=== PATIENT | female | born 1955 ===

== ENCOUNTER → 2022-12-06 10:29 | Outpatient (BNVA) | payer MEDICARE, SELFPAY | PROVIDERS: PCP Internal Medicine; Visit Provider Hospitalist | DX: G47.33 Obstructive sleep apnea (adult) (pediatric) (principal); J45.20 Mild intermittent asthma, uncomplicated | CPT/HCPCS: 99202 ==

== ENCOUNTER → 2023-02-01 09:04 | Outpatient (REF) | payer MEDICARE, SELFPAY | LOC: HO.SL 09:04 | PROVIDERS: Visit Provider Hospitalist | DX: Z13.89 Encounter for screening for other disorder (principal) ==

== ENCOUNTER → 2023-02-03 11:47 | Outpatient (REF) | payer MEDICARE, SELFPAY | LOC: HO.SL 11:47 | PROVIDERS: Visit Provider Hospitalist | DX: G47.33 Obstructive sleep apnea (adult) (pediatric) (principal) | CPT/HCPCS: 95806 ==

== ENCOUNTER → 2023-02-03 13:56 | Outpatient (BNV) | payer MEDICARE, SELFPAY | PROVIDERS: Visit Provider Internal Medicine | DX: G47.33 Obstructive sleep apnea (adult) (pediatric) (principal) | CPT/HCPCS: 95806 ==

== ENCOUNTER 2023-04-07 14:22 | Outpatient (AMB) | payer MEDICARE, SELFPAY ==
[2023-04-07 14:29] VITALS: PULSE 71; O2SAT 97; BMI 28.5
--- NOTE | 2023-04-07 14:29 | MHC.OFFVIS ---
Intake Vital Signs 04/07/23 14:29 Height 5 ft 1 in Weight 151 lb 0.266 oz BMI 28.5 Pulse 71 Pulse Source Pulse Oximeter Pulse Oximetry (%) 97 Oxygen Delivery Method Room Air Intake Visit Reasons: Shortness of breath Crm Coordinator Required: No Allergies No Known Allergies Allergy (Unverified 04/07/23 14:30) HPI HPI Comments History of Present Illness Details The patient is a 66 year woman with a known history of asthma and of the addition to obstructive sleep apnea. The patient has been on CPAP for many years. She has been treated with CPAP with very good effect. If she does benefit a lot from CPAP. She does use it every night. She does have a nasal mask which she tolerates very well as well. She started getting a message from the CPAP of a motor dysfunction. She has had this CPAP now for more than 8 years. Therefore she needs to get a replacement machine. She did have a sleep study here at [facility] many years ago. She would like to get another replacement but like to change DME companies because she is not very happy with what she has right now. We will set her up with a local DME company did skin this case. The patient needs to continue her CPAP therapy based on her severity of disease and also her cardiovascular risk factors. The patient also has a history of asthma. She has maintenance inhalers and also singular that she uses. She has not required her rescue inhaler at this time. 04/07/2023 the patient is here for pulmonary follow-up visit. She continues use her current CPAP although it has a warning message about motor dysfunction. However, the patient can not function without using her CPAP so therefore she still using every night. The CPAP therapy still is very beneficial although this machine is not so effective. She does use it for more than 4 hours a night. We had requested a replacement machine for her. However, she needed to have a repeat sleep study. Therefore the patient did undergo a sleep study initially and then had to be repeated due to lack of information. We did review her 2nd sleep study demonstrating an AHI of 11 events an hour and significant hypoxia. Based on her ongoing obstructive sleep apnea and her underlying cardiovascular risk factors the patient needs to continue CPAP therapy. We will order another CPAP machine from a local DME company in be established with the company to get supplies. Otherwise the patient is doing well from a respiratory status. She is no longer using the Flovent. She has a rescue inhaler that she has not really used. She is also using Singulair at nighttime. Will continue with current respiratory therapy and the patient should be getting a new CPAP soon. Will follow-up in a year's time if all is well. if other issues arise the patient is to call the office for further evaluation. [facility] Medical History (Updated 12/06/22 @ 23:22 by Lennox Duval MD) Asthma TREVA (obstructive sleep apnea) Social History (Updated 12/06/22 @ 10:54 by BRANDEN Villegas) Patient Tobacco Use Status: Never used Tobacco Review of Systems Const Denies fatigue and Denies headache(s) Eyes Denies change in vision ENT Denies headache(s) Card Denies chest pain Resp Denies cough GI Reports no additional complaints Musc Reports no additional complaints Skin/Breast Denies rash Neuro Reports no additional complaints and Denies headache(s) Endo Denies fatigue Cabrera/Lymph Denies lymphadenopathy Physical Exam Vital Signs: Last Vital Signs Pulse 71 04/07/23 14:29 Pulse Ox 97 04/07/23 14:29 Oxygen Delivery Method Room Air 04/07/23 14:29 BMI result Body Mass Index 28.5 Const General: comfortable HEENT Head: Yes atraumatic Neck Neck: Yes supple Chest Chest palpation & inspection: normal inspection of the chest Resp Effort & Inspection: normal respiratory effort Auscultation: clear to auscultation bilaterally Cardio Rate: regular rate Rhythm: regular rhythm Heart sounds: S1 normal heart sound present and S2 normal heart sound present GI Palpation (GI): Soft to palpation Skin General skin exam: no rashes or lesions noted Extrem General: Yes no clubbing, cyanosis or edema Assessment & Plan Assessment & Plan (1) TREVA (obstructive sleep apnea): Code(s): G47.33 - Obstructive sleep apnea (adult) (pediatric) (2) Asthma: Code(s): J45.909 - Unspecified asthma, uncomplicated Qualifiers: Asthma complication type: uncomplicated Asthma persistence: intermittent Asthma severity: mild Qualified Code(s): J45.20 - Mild intermittent asthma, uncomplicated Plan APAP machine is malfuctioning, needs a replacement. The patient has been using her CPAP for many years and the therapy has been effective and beneficial. Her malfuctioning APAP is more than 8 years old and has motor damage. Her repeat PSG demonstrates ongoing mild to moderate TREVA. rx sent to [facility]. YOUNG as needed holding Flovent continue singulair F/U 12 months Coding Level of Care Code Est Pt Level 4 (64115) Diagnoses TREVA (obstructive sleep apnea) G47.33 Mild intermittent asthma without complication J45.20 Asthma complication type: uncomplicated Asthma persistence: intermittent Asthma severity: mild Time Spent (min) 16
== END 2023-04-07 14:58 | disposition home or self-care (01) ==
PROVIDERS: PCP Internal Medicine; Visit Provider Hospitalist
DX: G47.33 Obstructive sleep apnea (adult) (pediatric) (principal); J45.20 Mild intermittent asthma, uncomplicated
CPT/HCPCS: 99214

== ENCOUNTER → 2023-04-07 14:22 | Outpatient (BNVA) | payer MEDICARE, SELFPAY | PROVIDERS: Visit Provider Hospitalist | DX: J45.20 Mild intermittent asthma, uncomplicated (principal); G47.33 Obstructive sleep apnea (adult) (pediatric) | CPT/HCPCS: 99212 ==

== ENCOUNTER 2023-08-12 14:54 | Outpatient (AMB) | payer MEDICARE, SELFPAY ==
--- NOTE | 2023-08-12 10:04 | A.OFFVIS_ITS ---
Intake Vital Signs 08/12/23 15:12 Height 5 ft 1 in Weight 150 lb BMI 28.3 BP 118/68 Blood Pressure Location Rt brachial Position Sitting Pulse 67 Pulse Source Pulse Oximeter Pulse Oximetry (%) 97 Oxygen Delivery Method Room Air Intake Visit Reasons: wheezing Allergies No Known Allergies Allergy (Unverified 08/12/23 15:10) Medication List - Last Reconciled 08/12/23 by Kierra Dey, COUNTER STACKER albuterol sulfate 90 mcg/actuation (ProAir HFA) 2 puffs inhalation Q6H PRN CPAP (CPAP Machine/Device) As directed estradiol (Vagifem) 10 mcg vaginal 2XW lisinopril 20 mg PO DAILY methenamine hippurate 1 g PO BID multivitamin 1 tab PO DAILY omega-3 fatty acids 1,250 mg PO DAILY pantoprazole 40 mg PO DAILY rosuvastatin 40 mg PO DAILY sertraline 100 mg PO DAILY HPI wheezing HPI Details Padmini is a pleasant 67 year old female, never smoker, with underlying asthma and TREVA on CPAP therapy. At baseline she has been well controlled on albuterol PRN, previously on Flovent. Today she presents for an acute visit. She reports being treated for an upper respiratory infection in May, with two courses of prednisone and antibiotics. Since then she reports chest tightness and feeling as though she has difficulty exhaling completely. She has albuterol but is hesitant to use. She denies cough, dyspnea or wheezing. She denies fevers, chills or sick contacts. Her PCP had placed her on Advair which she trialed for two weeks with minimal improvement. [facility] Medical History (Updated 12/06/22 @ 23:22 by Lennox Duval MD) Asthma TREVA (obstructive sleep apnea) Social History (Updated 12/06/22 @ 10:54 by BRANDEN Villegas) Patient Tobacco Use Status: Never used Tobacco Review of Systems Const Denies chills, Denies excessive sweating, Denies fever(s), Denies headache(s) and Denies night sweats Eyes Denies dry eyes, Denies irritation and Denies itchy eyes ENT Reports Normal hearing present, Denies headache(s), Denies nasal congestion, Denies nasal discharge, Denies post nasal drip and Denies sore throat Card Denies chest pain, Denies chest pain at rest, Denies chest pain with activity, Denies claudication, Denies leg edema, Denies dyspnea, Denies dyspnea on exertion, Denies orthopnea and Denies paroxysmal nocturnal dyspnea Resp Denies chest congestion, Denies cough, Denies excessive phlegm production, Denies pain on inspiration, Denies pain with cough, Denies dyspnea, Denies dyspnea on exertion, Denies stridor and Denies wheezing Musc Denies myalgias Neuro Reports Normal hearing present and Denies headache(s) Endo Denies excessive sweating Cabrera/Lymph Denies lymphadenopathy Aller/Immun Denies itchy eyes, Denies seasonal rhinorrhea and Denies wheezing Physical Exam Vital Signs: Last Vital Signs Pulse 67 08/12/23 15:12 BP 118/68 08/12/23 15:12 Pulse Ox 97 08/12/23 15:12 Oxygen Delivery Method Room Air 08/12/23 15:12 BMI result Body Mass Index 28.3 Const General: cooperative, healthy appearing, comfortable, no acute distress, well developed and alert Orientation/consciousness: patient oriented x3 Limitations: no limitations HEENT Head: Yes normal to inspection, Yes normocephalic and Yes atraumatic Ears: hearing grossly normal bilaterally and external ears normal Eyes General: appearance normal, both eyes and all related structures Eyelids: Yes eyelids normal Sclerae: sclerae normal EOM: EOMs intact bilaterally Neck Neck: Yes normal visual inspection and Yes no lymphadenopathy Lymphatic: no lymphadenopathy noted Chest Chest palpation & inspection: normal inspection of the chest Resp Effort & Inspection: normal respiratory effort, able to speak in complete sentences, no audible wheezes, no cough, no stridor, not tachypneic, no tripod positioning and no use of accessory muscles Auscultation: clear to auscultation bilaterally Cardio Jugular venous distension: no JVD Rate: regular rate Rhythm: regular rhythm Skin Other: warm, dry General skin exam: no rashes or lesions noted Neuro General: patient oriented x3 Cranial nerves: Yes Normal hearing present Cognition (Neuro): normal cognition Gait exam (Neuro): Normal gait present Extrem General: Yes normal to inspection, Yes capillary refill normal, Yes no clubbing, cyanosis or edema and Yes no pedal edema Psych Appearance: grossly normal and well kempt Speech and movement: Normal speech and movement present and Clear speech present Affect: normal affect Attitude: cooperative Thought process: Normal thought process present Thought content: Normal thought content present Insight: Good insight present (Psych) Judgement: Good judgement present (Psych) Assessment & Plan Assessment & Plan (1) Asthma: Code(s): J45.909 - Unspecified asthma, uncomplicated Qualifiers: Asthma severity: mild Asthma persistence: intermittent Asthma complication type: uncomplicated Qualified Code(s): J45.20 - Mild intermittent asthma, uncomplicated Plan Respiratory exam unremarkable. Advised patient to restart Advair and use albuterol when experiencing chest tightness. Will also send for PFT. All questions were answered and patient is in agreement of plan. Will follow up with Dr. Duval to review PFT results or sooner if needed. Orders: Orders PFT pulmonary function test Today J45.909 - Unspecified asthma, uncomplicated Coding Level of Care Code Est Pt Level 4 (30785) Diagnoses Mild intermittent asthma without complication J45.20 Asthma severity: mild Asthma persistence: intermittent Asthma complication type: uncomplicated
[2023-08-12 15:12] VITALS: BP 118/68; PULSE 67; O2SAT 97; BMI 28.3
== END 2023-08-12 15:40 | disposition home or self-care (01) ==
PROVIDERS: PCP Internal Medicine; Visit Provider Nurse Practitioner Family
DX: J45.20 Mild intermittent asthma, uncomplicated (principal)
CPT/HCPCS: 99214

== ENCOUNTER → 2023-08-12 14:54 | Outpatient (BNVA) | payer MEDICARE, SELFPAY | PROVIDERS: PCP Internal Medicine; Visit Provider Nurse Practitioner Family | DX: J45.20 Mild intermittent asthma, uncomplicated (principal) | CPT/HCPCS: 99212 ==

== ENCOUNTER 2023-09-09 09:00 | Outpatient (REF) | payer MEDICARE, SELFPAY ==
--- NOTE | 2023-09-09 11:32 | PFT_ITS ---
Indication: Asthma Spirometry [FEV1 to FVC 69% pre bronchodilators and 72% post bronchodilators. FEV1 1.97 L; FVC 2.73 L. no significant response to bronchodilators noted. Maximum voluntary ventilation 112% predicted] Lung Volumes [Total lung capacity 102% predicted] Diffusion Capacity [DLCO 88% predicted] Comparisons [None] Interpretation [There has a reversible obstructive ventilatory defect consistent with a diagnosis of asthma. No significant response to bronchodilators noted. Normal maximum voluntary ventilation. Lung volumes are within normal limits. Diffusing capacity also within normal limits. Clinical correlation warranted.] MTDD
[2023-09-09 11:33] VITALS: PULSE 76; RESP 14; O2SAT 99
== END 2023-09-09 09:01 | disposition home or self-care (01) ==
LOC: HO.RESP 09:00
PROVIDERS: PCP Internal Medicine; Visit Provider Nurse Practitioner Family
DX: J45.909 Unspecified asthma, uncomplicated (principal)
CPT/HCPCS: 94010; 94640; 94727; 94729

== ENCOUNTER → 2023-09-09 11:32 | Outpatient (BNV) | payer MEDICARE, SELFPAY | PROVIDERS: PCP Internal Medicine; Visit Provider Hospitalist | DX: J45.909 Unspecified asthma, uncomplicated (principal) | CPT/HCPCS: 94060; 94727; 94729 ==

== ENCOUNTER 2023-09-20 13:23 | Outpatient (AMB) | payer MEDICARE, SELFPAY ==
[2023-09-20 13:39] VITALS: PULSE 78; O2SAT 98; BMI 28.3
--- NOTE | 2023-09-20 13:39 | MHC.OFFVIS ---
Intake Vital Signs 09/20/23 13:39 Height 5 ft 1 in Weight 150 lb BMI 28.3 Pulse 78 Pulse Source Pulse Oximeter Pulse Oximetry (%) 98 Oxygen Delivery Method Room Air Intake Visit Reasons: wheezing: f/u after pft Outboard Motor Assembler Required: No Allergies No Known Allergies Allergy (Unverified 09/20/23 13:40) HPI HPI Comments History of Present Illness Details The patient is a 67 year woman with a known history of asthma and of the addition to obstructive sleep apnea. The patient has been on CPAP for many years. She has been treated with CPAP with very good effect. If she does benefit a lot from CPAP. She does use it every night. She does have a nasal mask which she tolerates very well as well. She started getting a message from the CPAP of a motor dysfunction. She has had this CPAP now for more than 8 years. Therefore she needs to get a replacement machine. She did have a sleep study here at [facility] many years ago. She would like to get another replacement but like to change DME companies because she is not very happy with what she has right now. We will set her up with a local DME company did skin this case. The patient needs to continue her CPAP therapy based on her severity of disease and also her cardiovascular risk factors. The patient also has a history of asthma. She has maintenance inhalers and also singular that she uses. She has not required her rescue inhaler at this time. 04/07/2023 the patient is here for pulmonary follow-up visit. She continues use her current CPAP although it has a warning message about motor dysfunction. However, the patient can not function without using her CPAP so therefore she still using every night. The CPAP therapy still is very beneficial although this machine is not so effective. She does use it for more than 4 hours a night. We had requested a replacement machine for her. However, she needed to have a repeat sleep study. Therefore the patient did undergo a sleep study initially and then had to be repeated due to lack of information. We did review her 2nd sleep study demonstrating an AHI of 11 events an hour and significant hypoxia. Based on her ongoing obstructive sleep apnea and her underlying cardiovascular risk factors the patient needs to continue CPAP therapy. We will order another CPAP machine from a local DME company in be established with the company to get supplies. Otherwise the patient is doing well from a respiratory status. She is no longer using the Flovent. She has a rescue inhaler that she has not really used. She is also using Singulair at nighttime. Will continue with current respiratory therapy and the patient should be getting a new CPAP soon. Will follow-up in a year's time if all is well. if other issues arise the patient is to call the office for further evaluation. 09/20/2023 the patient is here for a pulmonary follow-up visit. Overall she is doing well. Her asthma seems to be better controlled. She continues use Wixela inhaler twice a day. Also has a rescue inhaler but typically does not use it often typically less than 2 times a week. The patient has noticed improvement in respiratory status while using the maintenance inhaler regularly. She did undergo pulmonary function studies and we did review them. It appears that she has not reversible obstruction consistent with her asthma. The patient understands that when she does not use the inhaler she is obstructed. The patient also has been using the CPAP. She did get any CPAP. The CPAP therapy continues to be affecting beneficial. She does use it for more than 4 hours a night. We did download her machine. Appears that her AHI is at 3 events an hour. Her average pressure is around 10 cm. Therefore will go ahead and increase her minimum pressure from 6-14 to 7-14. She will try this pressure we can also increase it further to 8 for the minimum pressure if the patient feels like she needs additional pressure. She was getting some condensation in her tubing during the winter. we did talk about some options she can do to try to avoid that in the future. Currently the patient is doing well therefore [facility] Medical History (Updated 12/06/22 @ 23:22 by Lennox Duval MD) Asthma TREVA (obstructive sleep apnea) Social History (Updated 12/06/22 @ 10:54 by BRANDEN Villegas) Patient Tobacco Use Status: Never used Tobacco Review of Systems Const Denies chills, Denies excessive sweating, Denies fever(s), Denies headache(s) and Denies night sweats Eyes Denies dry eyes, Denies irritation and Denies itchy eyes ENT Reports Normal hearing present, Denies headache(s), Denies nasal congestion, Denies nasal discharge, Denies post nasal drip and Denies sore throat Card Denies chest pain, Denies chest pain at rest, Denies chest pain with activity, Denies claudication, Denies leg edema, Denies dyspnea, Denies dyspnea on exertion, Denies orthopnea and Denies paroxysmal nocturnal dyspnea Resp Denies chest congestion, Denies cough, Denies excessive phlegm production, Denies pain on inspiration, Denies pain with cough, Denies dyspnea, Denies dyspnea on exertion, Denies stridor and Denies wheezing Musc Denies myalgias Neuro Reports Normal hearing present and Denies headache(s) Endo Denies excessive sweating Cabrera/Lymph Denies lymphadenopathy Aller/Immun Denies itchy eyes, Denies seasonal rhinorrhea and Denies wheezing Physical Exam Vital Signs: Last Vital Signs Pulse 78 09/20/23 13:39 Pulse Ox 98 09/20/23 13:39 Oxygen Delivery Method Room Air 09/20/23 13:39 BMI result Body Mass Index 28.3 Const General: comfortable HEENT Head: Yes atraumatic Neck Neck: Yes supple Chest Chest palpation & inspection: normal inspection of the chest Resp Effort & Inspection: normal respiratory effort Auscultation: clear to auscultation bilaterally Cardio Rate: regular rate Rhythm: regular rhythm Heart sounds: S1 normal heart sound present and S2 normal heart sound present GI Palpation (GI): Soft to palpation Skin General skin exam: no rashes or lesions noted Neuro Cranial nerves: Yes Normal hearing present Extrem General: Yes no clubbing, cyanosis or edema Assessment & Plan Assessment & Plan (1) TREVA (obstructive sleep apnea): Code(s): G47.33 - Obstructive sleep apnea (adult) (pediatric) (2) Asthma: Code(s): J45.909 - Unspecified asthma, uncomplicated Qualifiers: Asthma complication type: uncomplicated Asthma persistence: intermittent Asthma severity: mild Qualified Code(s): J45.20 - Mild intermittent asthma, uncomplicated Plan YOUNG as needed continue Wixela BID continue singulair contnue APAP, adjusted 6-14 to 7-14 F/U 12 months Coding Level of Care Code Est Pt Level 4 (01981) Diagnoses TREVA (obstructive sleep apnea) G47.33 Mild intermittent asthma without complication J45.20 Asthma complication type: uncomplicated Asthma persistence: intermittent Asthma severity: mild Time Spent (min) 18
== END 2023-09-20 14:02 | disposition home or self-care (01) ==
PROVIDERS: PCP Internal Medicine; Visit Provider Hospitalist
DX: G47.33 Obstructive sleep apnea (adult) (pediatric) (principal); J45.20 Mild intermittent asthma, uncomplicated
CPT/HCPCS: 99214

== ENCOUNTER → 2023-09-20 13:23 | Outpatient (BNVA) | payer MEDICARE, SELFPAY | PROVIDERS: PCP Internal Medicine; Visit Provider Hospitalist | DX: G47.33 Obstructive sleep apnea (adult) (pediatric) (principal); J45.20 Mild intermittent asthma, uncomplicated | CPT/HCPCS: 99212 ==

== ENCOUNTER 2024-04-30 08:28 | Outpatient (AMB) | payer MEDICARE, SELFPAY ==
--- NOTE | 2024-04-30 08:30 | MHC.OFFVIS ---
Vital Signs 04/30/24 08:31 Height 5 ft 1 in Weight 144 lb 6.444 oz BMI 27.3 BP 126/68 Blood Pressure Location Rt brachial Position Sitting Pulse 73 Pulse Source Pulse Oximeter Pulse Oximetry (%) 98 Oxygen Delivery Method Room Air Intake Visit Reasons: Obstructive sleep apnea Group [employer] Department Head Required: No Sheep Sorter: Sheep Sorter offered & declined Accompanied by: Self / Same As Patient Allergies No Known Allergies Allergy (Unverified 09/20/23 13:40) Medication List - Last Reconciled 04/30/24 by Rhona Moreno LPN albuterol sulfate 90 mcg/actuation (ProAir HFA) 2 puffs inhalation Q6H PRN CPAP (CPAP Machine/Device) As directed estradiol (Vagifem) 10 mcg vaginal 2XW fluticasone propion-salmeterol 250-50 mcg/dose (Wixela Inhub) 1 inh inhalation BID lisinopril 20 mg PO DAILY methenamine hippurate 1 g PO BID multivitamin 1 tab PO DAILY omega-3 fatty acids 1,250 mg PO DAILY pantoprazole 40 mg PO DAILY rosuvastatin 40 mg PO DAILY sertraline 100 mg PO DAILY HPI Comments Details: The patient is a 68 year woman with a known history of asthma and of the addition to obstructive sleep apnea. The patient has been on CPAP for many years. She has been treated with CPAP with very good effect. If she does benefit a lot from CPAP. She does use it every night. She does have a nasal mask which she tolerates very well as well. She started getting a message from the CPAP of a motor dysfunction. She has had this CPAP now for more than 8 years. Therefore she needs to get a replacement machine. She did have a sleep study here at [facility] many years ago. She would like to get another replacement but like to change DME companies because she is not very happy with what she has right now. We will set her up with a local DME company did skin this case. The patient needs to continue her CPAP therapy based on her severity of disease and also her cardiovascular risk factors. The patient also has a history of asthma. She has maintenance inhalers and also singular that she uses. She has not required her rescue inhaler at this time. 04/07/2023 the patient is here for pulmonary follow-up visit. She continues use her current CPAP although it has a warning message about motor dysfunction. However, the patient can not function without using her CPAP so therefore she still using every night. The CPAP therapy still is very beneficial although this machine is not so effective. She does use it for more than 4 hours a night. We had requested a replacement machine for her. However, she needed to have a repeat sleep study. Therefore the patient did undergo a sleep study initially and then had to be repeated due to lack of information. We did review her 2nd sleep study demonstrating an AHI of 11 events an hour and significant hypoxia. Based on her ongoing obstructive sleep apnea and her underlying cardiovascular risk factors the patient needs to continue CPAP therapy. We will order another CPAP machine from a local [employer] company in be established with the company to get supplies. Otherwise the patient is doing well from a respiratory status. She is no longer using the Flovent. She has a rescue inhaler that she has not really used. She is also using Singulair at nighttime. Will continue with current respiratory therapy and the patient should be getting a new CPAP soon. Will follow-up in a year's time if all is well. if other issues arise the patient is to call the office for further evaluation. 09/20/2023 the patient is here for a pulmonary follow-up visit. Overall she is doing well. Her asthma seems to be better controlled. She continues use Wixela inhaler twice a day. Also has a rescue inhaler but typically does not use it often typically less than 2 times a week. The patient has noticed improvement in respiratory status while using the maintenance inhaler regularly. She did undergo pulmonary function studies and we did review them. It appears that she has not reversible obstruction consistent with her asthma. The patient understands that when she does not use the inhaler she is obstructed. The patient also has been using the CPAP. She did get any CPAP. The CPAP therapy continues to be affecting beneficial. She does use it for more than 4 hours a night. We did download her machine. Appears that her AHI is at 3 events an hour. Her average pressure is around 10 cm. Therefore will go ahead and increase her minimum pressure from 6-14 to 7-14. She will try this pressure we can also increase it further to 8 for the minimum pressure if the patient feels like she needs additional pressure. She was getting some condensation in her tubing during the winter. we did talk about some options she can do to try to avoid that in the future. Currently the patient is doing well therefore 04/30/2024 the patient is here for a pulmonary follow-up visit. Overall she is doing well. She continues use Wixela twice a day. She does have a rescue inhaler. Sometimes she does wake up a chest tightness. She is wondering if it is postnasal drip related. She will try the Neti bottle at nighttime. She also has fatigue stenosis nasal spray. We did talk about potentially increasing her medications if need be. However, right now will leave her on the current regimen. In addition to that she is using her CPAP. CPAP therapy has been affecting beneficial. We did download her machine. She uses it 100% of the time over 4 hours a night. She does use a nasal mask. We did think about a fullface mask if she has any issues more sinusitis or postnasal drip. Her AHI is down to 3.4. Right now will keep her on the current pressures of 7-16. If the patient has any issues she will call. Otherwise will follow-up in 1 year. [facility] Medical History (Updated 12/06/22 @ 23:22 by Lennox Duval MD) Asthma TREVA (obstructive sleep apnea) Social History (Updated 04/30/24 @ 08:38 by Rhona Moreno LPN) Patient Tobacco Use Status: Former Tobacco user Tobacco use type: Cigarette Cigarette Packs Per Day: 0.5 Cigarettes Per Day: 10 Years Smoked: 15 Review of Systems Const Denies chills, Denies excessive sweating, Denies fever(s), Denies headache(s) and Denies night sweats Eyes Denies dry eyes, Denies irritation and Denies itchy eyes ENT Reports Normal hearing present, Denies headache(s), Denies nasal congestion, Denies nasal discharge, Denies post nasal drip and Denies sore throat Card Denies chest pain, Denies chest pain at rest, Denies chest pain with activity, Denies claudication, Denies leg edema, Denies dyspnea, Denies dyspnea on exertion, Denies orthopnea and Denies paroxysmal nocturnal dyspnea Resp Denies chest congestion, Denies cough, Denies excessive phlegm production, Denies pain on inspiration, Denies pain with cough, Denies dyspnea, Denies dyspnea on exertion, Denies stridor and Denies wheezing Musc Denies myalgias Neuro Reports Normal hearing present and Denies headache(s) Endo Denies excessive sweating Cabrera/Lymph Denies lymphadenopathy Aller/Immun Denies itchy eyes, Denies seasonal rhinorrhea and Denies wheezing Physical Exam Vital Signs: Last Vital Signs Pulse 73 04/30/24 08:31 BP 126/68 04/30/24 08:31 Pulse Ox 98 04/30/24 08:31 Oxygen Delivery Method Room Air 04/30/24 08:31 BMI result Body Mass Index 27.3 Const General: comfortable HEENT Head: Yes atraumatic Neck Neck: Yes supple Chest Chest palpation & inspection: normal inspection of the chest Resp Effort & Inspection: normal respiratory effort Auscultation: clear to auscultation bilaterally Cardio Rate: regular rate Rhythm: regular rhythm Heart sounds: S1 normal heart sound present and S2 normal heart sound present GI Palpation (GI): Soft to palpation Skin General skin exam: no rashes or lesions noted Neuro Cranial nerves: Yes Normal hearing present Extrem General: Yes no clubbing, cyanosis or edema Assessment & Plan Assessment & Plan (1) TREVA (obstructive sleep apnea): Code(s): G47.33 - Obstructive sleep apnea (adult) (pediatric) Category: Medical (2) Asthma: Code(s): J45.909 - Unspecified asthma, uncomplicated Category: Medical Qualifiers: Asthma complication type: uncomplicated Asthma persistence: intermittent Asthma severity: mild Qualified Code(s): J45.20 - Mild intermittent asthma, uncomplicated Plan YOUNG as needed continue Wixela BID conisder LAMA if worsens continue singulair contnue APAP, 7-14 neti bottle fluticasone nasal spray F/U 12 months Orders: Orders XR chest 2V Today J45.20 - Mild intermittent asthma, uncomplicated Coding Level of Care Code Est Pt Level 4 (30304) Diagnoses TREVA (obstructive sleep apnea) G47.33 Mild intermittent asthma without complication J45.20 Asthma complication type: uncomplicated Asthma persistence: intermittent Asthma severity: mild Time Spent (min) 16
[2024-04-30 08:31] VITALS: BP 126/68; PULSE 73; O2SAT 98; BMI 27.3
== END 2024-04-30 08:49 | disposition home or self-care (01) ==
LOC: HO.HPS 08:28
PROVIDERS: PCP Internal Medicine; Visit Provider Hospitalist
DX: G47.33 Obstructive sleep apnea (adult) (pediatric) (principal); J45.20 Mild intermittent asthma, uncomplicated
CPT/HCPCS: 99214

== ENCOUNTER → 2024-04-30 08:28 | Outpatient (BNVA) | payer MEDICARE, SELFPAY | PROVIDERS: PCP Internal Medicine; Visit Provider Hospitalist | DX: G47.33 Obstructive sleep apnea (adult) (pediatric) (principal); J45.20 Mild intermittent asthma, uncomplicated; Z99.89 Dependence on other enabling machines and devices | CPT/HCPCS: 99212 ==